=== PATIENT | female | born 1960 | race Caucasian/White ===

== ENCOUNTER 2016-04-26 09:49 | Day surgery (SDC) | payer OTHER ==
[~2016-04-26] VITALS: Ht 167.6 cm; Wt 56.8 kg
[~2016-04-26 09:49] MED LIST: ESTR42.52 VG; GARL1TAB PO; LEVO50TA6 PO; Sodium Chloride LOK Flush 10 mL Syringe IV PRN; fentaNYL-PF 50 mCg/mL 2 mL Inj IVPUSH PRN
[2016-04-26 10:14] VITALS: BP 114/75; PULSE 66; RESP 15; O2SAT 100
[2016-04-26] MEDS: 0.9% Sodium Chloride 1,000 ML IV SCH ×2 (10:31→11:40)
[2016-04-26 11:07] VITALS: BP 113/72; PULSE 70; RESP 10; O2SAT 94
[2016-04-26 11:18] VITALS: BP 100/65; PULSE 63; RESP 12; O2SAT 97
--- NOTE | 2016-04-26 11:40 | ENDO ---
[address] [address] ENDOSCOPY PROCEDURE PATIENT: JULY OWEN : 1960 MR#: [id number] ADMIT: 04/26/2016 JOB ID: [id number] DATE OF SERVICE: 04/26/2016 PROCEDURE PERFORMED: Colonoscopy. INDICATIONS: Screening. ASA CLASSIFICATION: The patient's ASA classification is I. MALLAMPATI SCORE: Mallampati score was 1. MEDICATIONS: 1. Versed 5 mg. 2. Fentanyl 125 mcg. INSTRUMENT USED: PCF-H180AL. PREPARATION QUALITY: Fair. PROCEDURE DETAILS: After informed consent was obtained, the patient was brought into the GI suite, where she was placed on oxygen via nasal cannula and monitored with continuous pulse oximeter, telemetry, and blood pressure monitoring. A time-out was performed. Then, she was placed in the left lateral decubitus position and medications were administered for sedation. Digital rectal exam was performed which was unremarkable. The colonoscope was then inserted into the rectum and advanced under direct visualization to the cecum, which was identified by the presence of the ileocecal valve and appendiceal orifice. Once the cecum was reached, the colonoscope was withdrawn back into the rectum, as the mucosa and lumen were examined. In the rectum, retroflexion was performed. Following retroflexion, remaining air in the rectum was suctioned, and procedure was completed. FINDINGS: In the ascending colon, there was a diminutive polyp that was removed with cold biopsy forceps. IMPRESSION: 1. Ascending colon polyp. 2. Otherwise normal exam from rectum to cecum. RECOMMENDATIONS: Repeat colonoscopy in five years. COMPLICATIONS: None. ESTIMATED BLOOD LOSS: Less than 5 mL.
--- NOTE | 2016-04-29 11:34 | PATH ---
SURGICAL PATHOLOGY Attending Physician:Opal Uriostegui CASE STATUS: Signed Out PATIENT NAME: JULY OWEN PID: [id number] : 1960 DATE COLLECTED:04/26/2016 17:46 SPECIMEN: Colon, Biopsy CLINICAL HISTORY: ASCENDING POLYP FINAL DIAGNOSIS: 1.ASCENDING COLON POLYP: TUBULAR ADENOMA INVOLVING TWO BIOPSY FRAGMENTS. ICD10 CODE D12.2 GROSS DESCRIPTION: The specimen is received in one formalin filled container labeled with the patient's name, sublabeled "ascending polyp" and consists of 3 portions of tissue which aggregate to 0.3-0.3 x 0.2 CM. The specimen is entirely submitted in one cassette. 04/26/2016 DAC MICRO DESCRIPTION: See diagnosis. ICD-9 CODES: CPT CODES: 1: 92725 Electronically Signed Out Matthew Barth MD [facility] [address], [place] [address] Technical component performed at [facility], [facility] [address], [place], [address]
== END 2016-04-26 23:59 | disposition home or self-care (01) ==
LOC: END 09:49
PROVIDERS: ATTEND Internal Medicine Gastroenterology
DX: Z12.11 Encounter for screening for malignant neoplasm of colon (principal); D12.2 Benign neoplasm of ascending colon
CPT/HCPCS: 45380; 99153; G0500; J2250; J3010; J7030